=== PATIENT | male | born 1965 | race Caucasian/White ===

== ENCOUNTER → 2020-01-31 | Outpatient (CLI) | payer BC ==
[~2020-01-31] MED LIST: ACET500T68 PO; HYDROmorphone 2 MG/ML VIAL IV PRN; IBUP-1060 PO; INSULIN LISPRO 100 UNIT/ML 3ML VIAL for OP,RR ONLY. SQ PRN; IV RINGERS,LACTATED 1000ML 1,000 ML IV SCH; METF10007 PO; MORP-15 PO; MORPHINE SULFATE 2 MG/ML VIAL. IV PRN; ONDANSETRON PF 4 MG/2 ML VIAL. IV PRN; OXYC1TAB19 PO; PROCHLORPERAZINE 10 MG/2 ML VIAL. IV PRN; fentaNYL PF VIAL 100 MCG/2 ML VIAL IV PRN
[2020-01-31 16:00] LABS: BASO # 0.1 x10^3/uL (0.0-0.2); BASO % 1 % (0-3); EOS # 0.1 x10^3/uL (0.0-0.7); EOS % 1 % (0-3); HEMATOCRIT 40.8 % (39.0-53.0); LYMPH # 1.5 x10^3/uL (1.0-4.8); LYMPH % 16 % (24-48); MEAN CORPUSCULAR HEMOGLOBIN 30 pg (25-35); MEAN CORPUSCULAR HGB CONC 34 g/dL (31-37); MEAN CORPUSCULAR VOLUME 87 fL (79-100); MONO # 0.8 x10^3/uL (0.0-1.1); MONO % 8 % (0-9); NEUT # 7.1 x10^3/uL (1.8-7.7); NEUT % 74 % (31-73); PLATELET COUNT 242 x10^3/uL (140-400); RED BLOOD COUNT 4.71 x10^6/uL (4.30-5.70); RED CELL DISTRIBUTION WIDTH 14.5 % (11.5-14.5); WHITE BLOOD COUNT 9.5 x10^3/uL (4.0-11.0)
[2020-01-31 16:10] LABS: CALCIUM 8.3 mg/dL (8.5-10.1); CREATININE 1.4 mg/dL (0.7-1.3); GFR 52.4
[2020-02-01 00:11] LABS: HEMOGLOBIN A1C 6.5 % (4.8-5.6)
== END | disposition home or self-care (01) ==
LOC: SURGPAT 10:00 → SURG 15:32 → EDSTATUS 02-04 07:30
PROVIDERS: ATTEND Orthopaedic Surgery
DX: Z01.812 Encounter for preprocedural laboratory examination (principal); S42.291A Other displaced fracture of upper end of right humerus, initial encounter for closed fracture; Y93.55 Activity, bike riding; E11.9 Type 2 diabetes mellitus without complications; Z79.84 Long term (current) use of oral hypoglycemic drugs
CPT/HCPCS: 36415; 80048; 83036; 85025; 87635

== ENCOUNTER 2020-02-04 06:17 | Inpatient (IN) | payer BC ==
[~2020-02-04] VITALS: Ht 179.1 cm; Wt 295.0 kg
[2020-02-04] VITALS (11 sets, daily range): BP systolic 115–154; BP diastolic 69–84
[~2020-02-04 06:17] MED LIST changes: -HYDROmorphone 2 MG/ML VIAL IV PRN; -INSULIN LISPRO 100 UNIT/ML 3ML VIAL for OP,RR ONLY. SQ PRN; -IV RINGERS,LACTATED 1000ML 1,000 ML IV SCH; -MORPHINE SULFATE 2 MG/ML VIAL. IV PRN; -ONDANSETRON PF 4 MG/2 ML VIAL. IV PRN; -OXYC1TAB19 PO; -PROCHLORPERAZINE 10 MG/2 ML VIAL. IV PRN; +ceFAZolin SODIUM 3 GM in IV DEXTROSE 5% 100ML 100 ML IV PRN; -fentaNYL PF VIAL 100 MCG/2 ML VIAL IV PRN
[2020-02-04] MEDS ORDERED: BUPIVACAINE-EPI 0.25%-1:200000 MPF 30 ML VIAL. ONE (07:01)
[2020-02-04] MEDS ORDERED: BUPIVACAINE-EPI 0.5%-1:200000 MPF 30 ML VIAL. ONE (07:04)
[2020-02-04] MEDS ORDERED: BUPIVACAINE MPF 0.5% 30 ML VIAL. ONE (07:04)
[2020-02-04] MEDS ORDERED: LIDOCAINE 1% PF 2 ML VIAL. ONE (07:04)
[2020-02-04] MEDS ORDERED: GLYCOPYRROLATE 1 MG/5 ML VIAL. ONE (07:09)
[2020-02-04] MEDS ORDERED: SUCCINYLCHOLINE 200 MG/10 ML VIAL. ONE (07:09)
[2020-02-04] MEDS ORDERED: PROPOFOL 10 MG/ML (20ML) VIAL. IV ONE (07:10)
[2020-02-04] MEDS ORDERED: ONDANSETRON PF 4 MG/2 ML VIAL. ONE (07:10)
[2020-02-04] MEDS ORDERED: ROCURONIUM 50 MG/5 ML VIAL. ONE (07:10)
[2020-02-04] MEDS ORDERED: LIDOCAINE 2% PF 5 ML VIAL. ONE (07:10)
[2020-02-04] MEDS ORDERED: DEXAMETHASONE SOD PHOS 4 MG/ML VIAL ONE (07:10)
[2020-02-04] MEDS ORDERED: NEOSTIGMINE METHYLSULFATE 5 MG/5 ML SYRINGE. ONE (07:10)
[2020-02-04] MEDS ORDERED: PHENYLEPHRINE 10 MG/ML VIAL. ONE (07:12)
[2020-02-04] MEDS ORDERED: fentaNYL PF VIAL 100 MCG/2 ML VIAL ONE (07:12)
[2020-02-04] MEDS ORDERED: MIDAZOLAM HCL/PF 2 MG/2 ML VIAL. ONE (07:12)
[2020-02-04] MEDS ORDERED: SEVOFLURANE > 120 MINUTES. IH ONE (09:37)
[2020-02-04] MEDS ORDERED: INSULIN LISPRO 100 UNIT/ML 3ML VIAL for OP,RR ONLY. SQ PRN (11:45)
[2020-02-04] MEDS: IV DEXTROSE 5 %-0.45 % NACL 1,000 ML IV SCH ×2 (12:36→22:36)
[2020-02-04] MEDS ORDERED: IV NORMAL SALINE 1000ML BAG 1,000 ML IV SCH (12:36)
[2020-02-04] MEDS ORDERED: PROCHLORPERAZINE 5 MG TABLET. PO PRN (12:45)
[2020-02-04] MEDS ORDERED: NALOXONE 0.4 MG/ML VIAL. IV PRN (12:45)
[2020-02-04] MEDS ORDERED: MORPHINE SULFATE 2 MG/ML VIAL. IV PRN (12:45)
[2020-02-04] MEDS ORDERED: traMADol 50 MG TABLET PO PRN ×2 (12:45)
[2020-02-04] MEDS ORDERED: CALCIUM CARBONATE 500 MG TAB.CHEW PO PRN (12:45)
[2020-02-04] MEDS ORDERED: oxyCODONE/APAP 5/325 1 TAB TABLET PO PRN (12:45)
[2020-02-04] MEDS ORDERED: 0.9 % SODIUM CHLORIDE 10 ML DISP.SYRIN. IV PRN (12:45)
[2020-02-04] MEDS ORDERED: ACETAMINOPHEN 325 MG TABLET. PO PRN (12:45)
[2020-02-04] MEDS ORDERED: HYDROmorphone 2 MG/ML VIAL IV PRN (12:45)
[2020-02-04] MEDS ORDERED: ZOLPIDEM 5 MG TABLET. PO PRN (12:45)
[2020-02-04] MEDS ORDERED: HYDROcodone/APAP 10/325 1 TAB TABLET PO PRN (12:45)
[2020-02-04] MEDS ORDERED: DEXTROSE 50% 25 GM / 50ML DISP.SYRIN. IV PRN (12:45)
[2020-02-04] MEDS ORDERED: HYDROcodone/APAP 7.5/325MG 1 TAB TABLET PO PRN (12:45)
--- NOTE | 2020-02-04 13:00 | NUR ---
Pt admitted from PACU via bed. Pt A&O x4, denies pain, VSS on 2L of O2, TEDS/SCDs on, IVF infusing, dressing CDI. Completed admission assessment. Pt oriented to room and routines. Call light within reach. Will continue to monitor.
--- NOTE | 2020-02-04 13:03 | RAD ---
EXAM: Right shoulder, 2 views. HISTORY: Arthroplasty. COMPARISON: None. FINDINGS: 2 views of the right shoulder obtained. There is a right shoulder arthroplasty in expected position. There is surrounding soft tissue gas and there are liyah due to recent surgery. IMPRESSION: Right shoulder arthroplasty in expected position. Electronically signed by: Janeth Arriola MD (02/04/2020 1:00 PM) [id number]
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
[2020-02-04] MEDS: FERROUS SULFATE 325 MG TABLET. PO SCH (17:36)
[2020-02-04] MEDS: ceFAZolin SODIUM 3 GM in IV DEXTROSE 5% 100ML 100 ML IV SCH ×2 (17:36→21:25)
[2020-02-04] MEDS: CELECOXIB 100 MG CAPSULE. PO SCH (21:25)
[2020-02-05] MEDS: ceFAZolin SODIUM 3 GM in IV DEXTROSE 5% 100ML 100 ML IV SCH (02:53)
[2020-02-05 03:17] VITALS: BP 105/70
[2020-02-05] MEDS ORDERED: MAGNESIUM HYDROXIDE 2,400 MG/30 ML ORAL.SUSP. PO PRN (06:00)
[2020-02-05 07:15] VITALS: BP 140/88
[2020-02-05] MEDS: oxyCODONE/APAP 7.5/325 1 TAB TABLET PO PRN ×2 (07:33→12:00)
--- NOTE | 2020-02-05 08:15 | PDOC ---
PROGRESS NOTES Subjective Subjective Problems overnight: States that the arm began waking up early this morning he had a pain pill about 3 in the morning and it starting to hurt a lot more now Objective Vital Signs Vital Signs Date Time Temp Pulse Resp B/P (MAP) Pulse Ox O2 Delivery O2 Flow Rate FiO2 02/05/20 07:44 Room Air 02/05/20 03:53 94 02/05/20 03:17 98.9 75 18 105/70 (82) 98.9 02/04/20 19:15 2.0 Physical Exam On examination he really has no drainage on his dressing distal sensation and motor function are intact some mild expected swelling right upper extremity Labs Laboratory Tests Test 02/04/20 06:45 02/04/20 11:24 02/04/20 21:02 02/05/20 08:01 Glucose (Fingerstick) 172 mg/dL (70-99) 182 mg/dL (70-99) 197 mg/dL (70-99) 231 mg/dL (70-99) Laboratory Tests Test 02/04/20 11:24 02/04/20 21:02 02/05/20 08:01 Glucose (Fingerstick) 182 mg/dL (70-99) 197 mg/dL (70-99) 231 mg/dL (70-99) Imaging Postop x-rays show well-positioned reverse shoulder arthroplasty with excellent reduction of his fracture fragments Assessment Assessment POD#1 reverse shoulder arthroplasty for proximal humerus fracture with comminution and head splitting Plan Plan of Care Overall he is doing reasonably well I gave detailed instructions for him to do some gentle pendulum exercises stretching below shoulder level fine motor use with his arm to the side including writing a little bit of typing feeding himself and weaning out of the sling as tolerated. Dressing to be changed to an aqua cell dressing on discharge and I gave him instructions to call if that is becoming saturated but not to worry if there is slight spotting on the dressing and that he can shower as long as it remains sealed. Follow-up would be a week from Friday DEONDRE ALMONTE MD February 05, 2020 08:15
[2020-02-05] MEDS ORDERED: OXYC1TAB19 PO (08:18)
--- NOTE | 2020-02-05 08:20 | DISCH ---
DISCHARGE INSTRUCTIONS Condition on Discharge Condition on Discharge: Stable Activity After Discharge Activity Instructions for Disc: Other, see below (May do gentle stretching exercises below shoulder level with a tabletop for support, pendulum exercises and fine motor activity eating typing writing etc.) Weight Bearing Status after Di: Non weight bearing Diet after Discharge Diet after Discharge: Diabetic No Calorie Level Wound Incision Care Wound/Incision Care: Ice to area for comfort, Do not change dressing (Report if the dressing is saturated or leaking. If dressing intact may shower) Contacting the DR. after DC Call your doctor for: Concerns you may have Follow-Up Follow up with: Dr. Chamorro 10 days DEONDRE CHAMORRO MD February 05, 2020 08:20
[2020-02-05] MEDS: CELECOXIB 100 MG CAPSULE. PO SCH (08:31)
[2020-02-05] MEDS: FERROUS SULFATE 325 MG TABLET. PO SCH (08:31)
[2020-02-05] MEDS: IV DEXTROSE 5 %-0.45 % NACL 1,000 ML IV SCH (08:36)
[2020-02-05] MEDS ORDERED: SENNOSIDES/DOCUSATE 8.6/50MG TABLET. PO SCH (09:00)
[2020-02-05] MEDS ORDERED: MULTIVITAMIN with MINERAL TABLET. PO SCH (09:00)
[2020-02-05 11:12] VITALS: BP 139/72
--- NOTE | 2020-02-05 13:13 | NUR ---
Discharge Note: MAGDALENO VASQUEZ Discharge instructions and discharge home medications reviewed with Patient and a copy given. All questions have been answered and understanding verbalized. The following instructions and handouts were given: Patient given education regarding medication and care instructions. Discontinued lines and drains: IV removed per protocol. Patient discharged home, picked up by family member.
[2020-02-05] MEDS ORDERED: BISACODYL 10 MG SUPP.RECT. PR PRN (16:00)
== END 2020-02-05 13:00 | disposition home or self-care (01) | DRG 483 ==
LOC: SURG 06:17 → 4 NORTH 12:19 → OBSVTOIN 12:42
PROVIDERS: ADMIT Orthopaedic Surgery; ATTEND Orthopaedic Surgery
PROC: 0RRJ00Z Replacement of Right Shoulder Joint with Reverse Ball and Socket Synthetic Substitute, Open Approach (ICD-10-PCS; principal; 2020-02-04 07:30)
DX: S42.253A Displaced fracture of greater tuberosity of unspecified humerus, initial encounter for closed fracture (principal); S42.201A Unspecified fracture of upper end of right humerus, initial encounter for closed fracture; Z96.619 Presence of unspecified artificial shoulder joint; V18.4XXA Pedal cycle driver injured in noncollision transport accident in traffic accident, initial encounter; Y93.55 Activity, bike riding
CPT/HCPCS: 73030; 82962; G0379; J0330; J0690; J1100; J1815; J2250; J2370; J2405; J2704; J2710; J3010; J3490; J7060; 97535-GO; A4565; G0378

== ENCOUNTER → 2020-03-13 | Outpatient (CLI) | payer OTHER ==
[~2020-03-13] MED LIST changes: +OXYC1TAB19 PO; -ceFAZolin SODIUM 3 GM in IV DEXTROSE 5% 100ML 100 ML IV PRN
[2020-03-13 10:56] LABS: BILIRUBIN,URINE NEGATIVE (NEG); CLARITY,URINE CLEAR; COLOR,URINE YELLOW; NITRITE,URINE NEGATIVE (NEG); PROTEIN,URINE NEGATIVE (NEG-TRACE); UROBILINOGEN,URINE 0.2 mg/dL (0.2 mg/dL)
[2020-03-13 11:07] LABS: BACTERIA,URINE 0 /HPF (0-FEW); RBC,URINE 0 /HPF (0-2); SQUAMOUS EPITHELIAL CELL,UR OCC /LPF; WBC,URINE OCC /HPF (0-4)
[2020-03-13 11:18] LABS: ALBUMIN 3.7 g/dL (3.4-5.0); ALBUMIN/GLOBULIN RATIO 1.1 (1.0-1.7); CALCIUM 8.6 mg/dL (8.5-10.1); CREATININE 1.1 mg/dL (0.7-1.3); GFR 69.2; POTASSIUM 4.1 mmol/L (3.5-5.1); TOTAL BILIRUBIN 0.4 mg/dL (0.2-1.0); TOTAL PROTEIN 7.1 g/dL (6.4-8.2)
[2020-03-13 11:21] LABS: CHOLESTEROL/HDL RATIO 4.7
[2020-03-13 17:09] LABS: CREAT RD UR 115.9 mg/dL (Not Estab.); MICROALB RD UR 31.9 ug/mL (Not Estab.)
[2020-03-14 00:07] LABS: HEMOGLOBIN A1C 6.4 % (4.8-5.6)
[2020-03-15 14:56] LABS: FECAL OB PT NEGATIVE (NEG)
== END | disposition home or self-care (01) ==
LOC: LAB 10:20
PROVIDERS: ATTEND Family Medicine
DX: Z12.11 Encounter for screening for malignant neoplasm of colon (principal); E11.9 Type 2 diabetes mellitus without complications; E78.5 Hyperlipidemia, unspecified
CPT/HCPCS: 36415; 80053; 80061; 81001; 82043; 82274; 82570; 83036; 84436; 84443

== ENCOUNTER → 2022-01-16 | Outpatient (CLI) | payer BC ==
--- NOTE | 2022-01-16 15:40 | KCIC ---
EXAM: XR KNEE _3 VIEWS_LT 01/16/2022 12:41 PM CLINICAL INDICATION: Left knee pain for 3 weeks COMPARISON: None TECHNIQUE: Standing AP, oblique, and lateral views of the left knee FINDINGS: No acute fracture or malalignment. There is minimal medial compartment narrowing. There ar e tricompartmental osteophytes. No joint effusion or soft tissue abnormality. IMPRESSION: Mild tricompartmental degenerative joint disease. Electronically signed by: Kori Brown MD (01/16/2022 3:38 PM) [id number]
== END ==
LOC: KCIC 12:37
PROVIDERS: ATTEND Family Medicine
DX: M17.12 Unilateral primary osteoarthritis, left knee (principal); M25.762 Osteophyte, left knee; M25.862 Other specified joint disorders, left knee
CPT/HCPCS: 73562